=== PATIENT | male | born 1975 | race Caucasian/White ===

== ENCOUNTER 2018-09-24 10:25 | Emergency (ER) | payer MEDICAID, OTHER ==
[2018-09-24 10:31] VITALS: BP 131/90
--- NOTE | 2018-09-24 11:05 | EDPHY ---
H & P Time Seen by Provider: 09/24/18 10:44 HPI/ROS: CHIEF COMPLAINT: Left ear pain HISTORY OF PRESENT ILLNESS: Patient is a 43-year-old male presents emergency department after injuring his left ear. Patient was playing with his daughter who accidentally stuck a thermometer into his ear. He developed sudden left ear pain. He has a muffled sensation although he reports being able to hear. He has had no significant discharge. His pain is controlled this time. He is not dizzy or lightheaded. No vomiting. REVIEW OF SYSTEMS: 10 systems were reveiwed and are negative with the exception of the elements mentioned in the history of present illness. Past Medical/Surgical History: Negative Social history: The patient plays [employer]. Smoking Status: Former smoker Physical Exam: Vitals noted General Appearance: [Alert and no distress]. Head: [Pupils equal. Normal]. ENT: The patient has mild blood in his left external auditory canal. The tympanic membrane is intact (although I am unable to visualize it fully). Respiratory: [No respiratory distress]. Cardiac: [regular rate and rhythm]. Extremities: [Full range of motion, normal appearing]. Skin: No rashes or lesions. Neuro: [Alert. Normal mood and affect]. Constitutional: Initial Vital Signs Temperature (C) 36.4 C 09/24/18 10:28 Heart Rate 78 09/24/18 10:28 Respiratory Rate 16 09/24/18 10:28 Blood Pressure 131/90 H 09/24/18 10:28 O2 Sat (%) 98 09/24/18 10:28 O2 Delivery Mode Room Air Allergies/Adverse Reactions: No Known Allergies Allergy (Verified 09/24/18 10:27) Home Medications: Medication Instructions Recorded NK [No Known Home Meds] 09/24/18 Medical Decision Making ED Course/Re-evaluation: In the emergency department I discussed possible etiologies with the patient. I answered all his questions. At this time I do not feel he needs antibiotics. He was instructed to follow-up with ears Nose and Throat. He is given contact information. He is given warnings prior to leaving. He will return with worsening symptoms. Differential Diagnosis: My differential includes but is not limited to tympanic membrane perforation, external auditory canal abrasion, foreign body, otitis media Departure - Departure Disposition: Home, Routine, Self-Care Clinical Impression: Auditory canal wound Qualifiers: Encounter type: initial encounter Laterality: left Qualified Code(s): S01.302A - Unspecified open wound of left ear, initial encounter Condition: Good Instructions: Abrasion (ED) Additional Instructions: Keep your ear clean and dry. Do not stick any foreign body into your ear. Call ENT on Wednesday to make the next available appointment for recheck. Referrals: Lisa Meadows MD [Medical Doctor] - 5-7 days, call for appt.
== END 2018-09-24 11:16 | disposition home or self-care (01) ==
DX: S01.302A Unspecified open wound of left ear, initial encounter (principal); W45.8XXA Other foreign body or object entering through skin, initial encounter; Y93.83 Activity, rough housing and horseplay; Y92.9 Unspecified place or not applicable; Y99.9 Unspecified external cause status

== ENCOUNTER 2018-10-11 18:22 | Emergency (ER) | payer MEDICAID ==
[2018-10-11] MEDS ORDERED: ACETAMINOPHEN 325 MG TAB PO ONE (18:39)
--- NOTE | 2018-10-11 19:00 | EDPHY ---
H & P Stated Complaint: Low back/flank pain Time Seen by Provider: 10/11/18 18:33 HPI/ROS: CHIEF COMPLAINT: Low back pain, nausea HISTORY OF PRESENT ILLNESS: 43-year-old male presents with low back pain and nausea. Onset low back pain this morning. Low back pain is moderate and increases with movement. Associated with nausea and diffuse myalgias. 1 episode of dysuria this morning, no subsequent dysuria or other urinary symptoms throughout the day. No known fever and no chills. He received a flu vaccination this year. REVIEW OF SYSTEMS: complete 10 point ROS reviewed and is negative except for the noted elements in the HPI Source: Patient - Personal History Current Tetanus/Diphtheria Vaccine: Yes - Medical/Surgical History Hx Asthma: No Hx Chronic Respiratory Disease: No Hx Diabetes: No Hx Cardiac Disease: No Hx Renal Disease: No Hx Cirrhosis: No Hx Alcoholism: No Other PMH: healthy - Social History Smoking Status: Former smoker Alcohol Use: Rarely Drug Use: None - Physical Exam Exam: General Appearance: Alert, pleasant Eyes: Pupils equal and round, no conjunctival pallor or injection ENT, Mouth: Mucous membranes moist Neck: Normal inspection Respiratory: Lungs are clear to auscultation Cardiovascular: Regular rate and rhythm Gastrointestinal: Abdomen is soft and nontender Back: Normal inspection, no midline tenderness, mild tenderness bilateral lumbar paraspinous musculature Neurological: A&O, motor 5/5, sensory grossly intact, normal gait Skin: Warm and dry, no rash Extremities: Normal inspection Psychiatric: Mood and affect normal Constitutional: Initial Vital Signs Temperature (C) 38.2 C 10/11/18 18:27 Heart Rate 100 10/11/18 18:27 Respiratory Rate 18 10/11/18 18:27 Blood Pressure 101/73 10/11/18 18:27 O2 Sat (%) 97 10/11/18 18:27 O2 Delivery Mode Room Air Allergies/Adverse Reactions: No Known Allergies Allergy (Verified 10/11/18 18:30) Home Medications: Medication Instructions Recorded Terbinafine 10/11/18 Medical Decision Making ED Course/Re-evaluation: This patient presents with a flu-like illness. He has no risk factors for worrisome etiology such as epidural abscess and his physical exam is normal. Urinalysis is negative for leukocytes and influenza swab is negative. Feels better after fever reduction. Will discharge home with symptomatic care instructions. Warning signs discussed. Differential Diagnosis: Differential diagnosis includes pyelonephritis, cholecystitis, influenza, cellulitis, pneumonia, abscess, meningitis. - Data Points Laboratory Results: Laboratory Results 10/11/18 19:10 10/11/18 19:10 10/11/18 10/11/18 10/11/18 19:10 19:10 19:10 WBC 10.76 10^3/uL H 10^3/uL (3.80-9.50) RBC 5.28 10^6/uL 10^6/uL (4.40-6.38) Hgb 16.3 g/dL g/dL (13.7-17.5) Hct 46.5 % % (40.0-51.0) MCV 88.1 fL fL (81.5-99.8) MCH 30.9 pg pg (27.9-34.1) MCHC 35.1 g/dL g/dL (32.4-36.7) RDW 12.0 % % (11.5-15.2) Plt Count 186 10^3/uL 10^3/uL (150-400) MPV 9.4 fL fL (8.7-11.7) Neut % (Auto) 87.2 % H % (39.3-74.2) Lymph % (Auto) 8.6 % L % (15.0-45.0) Davis % (Auto) 3.9 % L % (4.5-13.0) Eos % (Auto) 0.0 % L % (0.6-7.6) Baso % (Auto) 0.2 % L % (0.3-1.7) Nucleat RBC Rel Count 0.0 % % (0.0-0.2) Absolute Neuts (auto) 9.39 10^3/uL H 10^3/uL (1.70-6.50) Absolute Lymphs (auto) 0.92 10^3/uL L 10^3/uL (1.00-3.00) Absolute Monos (auto) 0.42 10^3/uL 10^3/uL (0.30-0.80) Absolute Eos (auto) 0.00 10^3/uL L 10^3/uL (0.03-0.40) Absolute Basos (auto) 0.02 10^3/uL 10^3/uL (0.02-0.10) Absolute Nucleated RBC 0.00 10^3/uL 10^3/uL (0-0.01) Immature Gran % 0.1 % % (0.0-1.1) Immature Gran # 0.01 10^3/uL 10^3/uL (0.00-0.10) Sodium 136 mEq/L mEq/L (135-145) Potassium 4.0 mEq/L mEq/L (3.5-5.2) Chloride 104 mEq/L mEq/L (97-110) Carbon Dioxide 23 mEq/l mEq/l (22-31) Anion Gap 9 mEq/L mEq/L (6-14) BUN 19 mg/dL mg/dL (7-23) Creatinine 1.0 mg/dL mg/dL (0.7-1.3) Estimated GFR > 60 Glucose 92 mg/dL mg/dL (70-100) Calcium 9.4 mg/dL mg/dL (8.5-10.4) Total Bilirubin 2.2 mg/dL H mg/dL (0.1-1.4) Conjugated Bilirubin 0.1 mg/dL mg/dL (0.0-0.5) Unconjugated Bilirubin 2.1 mg/dL H mg/dL (0.0-1.1) AST 20 IU/L IU/L (17-59) ALT 22 IU/L IU/L (21-72) Alkaline Phosphatase 52 IU/L IU/L (38-126) Total Protein 6.6 g/dL g/dL (6.3-8.2) Albumin 4.1 g/dL g/dL (3.5-5.0) Urine Color Urine Appearance Urine pH Ur Specific [place] Urine Protein Urine Ketones Urine Blood Urine Nitrate Urine Bilirubin Urine Urobilinogen Ur Leukocyte Esterase Urine RBC Urine WBC Ur Epithelial Cells Urine Glucose Nasal Influenza A PCR NEGATIVE FOR FLU A (NEGATIVE) Nasal Influenza B PCR NEGATIVE FOR FLU B (NEGATIVE) 10/11/18 18:46 WBC RBC Hgb Hct MCV MCH MCHC RDW Plt Count MPV Neut % (Auto) Lymph % (Auto) Davis % (Auto) Eos % (Auto) Baso % (Auto) Nucleat RBC Rel Count Absolute Neuts (auto) Absolute Lymphs (auto) Absolute Monos (auto) Absolute Eos (auto) Absolute Basos (auto) Absolute Nucleated RBC Immature Gran % Immature Gran # Sodium Potassium Chloride Carbon Dioxide Anion Gap BUN Creatinine Estimated GFR Glucose Calcium Total Bilirubin Conjugated Bilirubin Unconjugated Bilirubin AST ALT Alkaline Phosphatase Total Protein Albumin Urine Color PALE YELLOW Urine Appearance CLEAR Urine pH 5.0 (5.0-7.5) Ur Specific [place] 1.005 (1.002-1.030) Urine Protein NEGATIVE (NEGATIVE) Urine Ketones NEGATIVE (NEGATIVE) Urine Blood 1+ H (NEGATIVE) Urine Nitrate NEGATIVE (NEGATIVE) Urine Bilirubin NEGATIVE (NEGATIVE) Urine Urobilinogen NEGATIVE EU EU (0.2-1.0) Ur Leukocyte Esterase NEGATIVE (NEGATIVE) Urine RBC 1-3 /hpf /hpf (0-3) Urine WBC 1-3 /hpf /hpf (0-3) Ur Epithelial Cells NONE SEEN /lpf /lpf (NONE-1+) Urine Glucose NEGATIVE (NEGATIVE) Nasal Influenza A PCR Nasal Influenza B PCR Medications Given: Discontinued Medications Acetaminophen (Tylenol) 650 mg PO EDNOW ONE Stop: 10/11/18 18:40 Last Admin: 10/11/18 19:05 Dose: 650 mg Departure - Departure Disposition: Home, Routine, Self-Care Clinical Impression: Viral syndrome Condition: Good Instructions: Viral Syndrome (ED) Additional Instructions: Ibuprofen 600 mg 3 times daily while the fever and muscle aches persist. Drink plenty of fluids. Zofran 4 mg tablet under the tongue every 6 hr as needed for nausea. Return for worsening symptoms or any concerns. Referrals: Scarlett Zazueta MD [Medical Doctor] - As per Instructions
[2018-10-11 19:21] LABS: PLATELET COUNT 186 10^3/uL (150-400)
[2018-10-11] MEDS ORDERED: ONDANSETRON 4MG PREPACK#2 BTL TAKEHOME ONE (19:56)
[2018-10-11 20:06] VITALS: BP 128/72
== END 2018-10-11 20:04 | disposition home or self-care (01) ==
DX: B34.9 Viral infection, unspecified (principal); R11.0 Nausea; Z87.891 Personal history of nicotine dependence

== ENCOUNTER → 2019-01-28 | Outpatient (CLI) | payer MEDICAID | LOC: FIMAGING 08:54 | PROVIDERS: ATTEND Internal Medicine | DX: S86.811A Strain of other muscle(s) and tendon(s) at lower leg level, right leg, initial encounter (principal); M23.021 Cystic meniscus, posterior horn of medial meniscus, right knee; M71.21 Synovial cyst of popliteal space [Baker], right knee ==